=== PATIENT | female | born 1985 | race Caucasian/White ===

== ENCOUNTER 2017-05-17 09:24 | Outpatient (CLI) | payer OTHER | END 2017-05-17 09:26 | disposition home or self-care (01) | LOC: RAD 09:24 | DX: Z98.890 Other specified postprocedural states (principal) ==

== ENCOUNTER → 2017-07-12 | Outpatient (CLI) | payer OTHER | END | disposition home or self-care (01) | LOC: SONOGRAMA 07:12 | DX: M25.522 Pain in left elbow (principal) ==

== ENCOUNTER 2018-01-10 07:51 | Outpatient (CLI) | payer OTHER | END 2018-01-10 08:00 | disposition home or self-care (01) | LOC: SONOGRAMA 07:51 | DX: R22.1 Localized swelling, mass and lump, neck (principal) ==